=== PATIENT | male | born 1960 | race Caucasian/White ===

== ENCOUNTER 2018-06-13 06:12 | Emergency (ER) | payer MEDICARE, MEDICAID ==
[~2018-06-13] VITALS: Ht 190.5 cm; Wt 103.1 kg
[2018-06-13 06:18] VITALS: BP 111/68
[2018-06-13] MEDS ORDERED: CLON-529 PO (07:05)
[2018-06-13] MEDS ORDERED: TRAZ-218 PO (07:05)
== END 2018-06-13 07:28 | disposition home or self-care (01) ==
LOC: ER 06:13
DX: M54.9 Dorsalgia, unspecified (principal); Z76.0 Encounter for issue of repeat prescription
CPT/HCPCS: 99283